=== PATIENT | female | born 1935 | race Hispanic/Latino ===

== ENCOUNTER 2016-11-27 11:10 | Outpatient (CLI) | payer MEDICARE, MEDICAID ==
--- NOTE | 2016-11-27 12:25 | RAD ---
CHEST PA AND LATERAL 2 VIEWS: HISTORY: An 81-year-old female with chronic cough. COMPARISON: 07/09/16, 05/27/15 and 10/15/11. FINDINGS: Again noted is extensive dilatation of the region of the arch of aorta which is stable from prior st udies. Heart size is within normal limits. Anterior cervical fusion changes of the lower cervical spine. No confluent pneumonia, overt edema, or pleural effusion. 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 No pneumonia or other acut e intrathoracic disease. POS: [facility]
== END 2016-11-27 11:11 | disposition home or self-care (01) ==
LOC: MADRAD 11:10
PROVIDERS: ATTEND Family Medicine
DX: R05 Cough (principal); I77.810 Thoracic aortic ectasia
CPT/HCPCS: 71020

== ENCOUNTER 2018-01-03 17:31 | Emergency (ER) | payer MEDICARE, OTHER ==
[2018-01-03] MEDS ORDERED: Promethazine HCl 25 MG/ML VIAL ONE (17:51)
[2018-01-03] MEDS ORDERED: MORPHINE 10 MG/ML SYRINGE ONE (17:51)
[2018-01-03] MEDS ORDERED: Ketorolac Tromethamine 30 MG/ML VIAL ONE (17:52)
--- NOTE | 2018-01-03 19:04 | RAD ---
PA CHEST X-RAY WITH TWO VIEWS LEFT-SIDED RIBS: 01/03/2018 HISTORY: Injury after fall. COMPARISON: 11/27/2016 FINDINGS: Again noted is aneurysmal dilatation of the aortic arch with vascular calcifications again seen. The thoracic aorta also remains tortuous. There is mild volume loss at the left lung base. The lungs a re otherwise clear. No pneumothorax or pleural effusion is present. Postsurgical changes related to anterior cervical fusion of the lower cervical spine are again noted. the lower most ribs are parti ally obscured, but there is otherwise no obvious left-sided rib fracture identified. There are degen erative changes in the spine. No other interval change from prior study. IMPRESSION: 1. No acute cardiopulmonary process. 2. Stable aneurysmal dilatation of the aortic arch and tortuosity of the thoracic aorta. 3. No obvious left-sided rib fracture is appreciated. POS: [facility]
--- NOTE | 2018-01-03 19:07 | RAD ---
LEFT WRIST THREE VIEWS: 01/03/2018 HISTORY: Left wrist injury after a fall. FINDINGS: There is a fracture involving the radial styloid process, which is slightly comminuted, with mild sep aration of fracture fragments. No additional fracture is seen, and there is no dislocation. There i s prominent osteoarthritis involving the first carpometacarpal joint, and the base of the metacarpal is slightly displaced laterally, related to the prominent degenerative changes. There are prominent vascular calcifications at the level of the wrist. Subcutaneous soft tissue swelling is seen about t he wrist. IMPRESSION: 1. Mildly comminuted fracture with minimal separation of fracture fragments involving the radial sty loid process. 2. Subcutaneous soft tissue swelling. 3. Osteoarthritis. POS: [facility]
--- NOTE | 2018-01-03 19:08 | RAD ---
LEFT KNEE FOUR VIEWS: 01/03/2018 HISTORY: Left knee injury after fall. FINDINGS: There is no evidence of a fracture, dislocation, or other osseous abnormality. A small superior abreu llar enthesophyte is noted. Vascular calcification is seen posterior to the knee. IMPRESSION: No acute osseous abnormality. POS: [facility]
--- NOTE | 2018-01-03 19:09 | RAD ---
RIGHT KNEE FOUR VIEWS: 01/03/2018 HISTORY: Right knee injury after fall. FINDINGS: There is suggestion of a mildly comminuted fracture involving the mid portion and inferior pole of th e patella with mild separation without significant displacement of fracture fragments. No additional fracture is seen, and there is no evidence of a dislocation. Prominent vascular calcification poste rior to the knee. IMPRESSION: Nondisplaced fracture of the patella, which is probably minimally comminuted. POS: [facility]
== END 2018-01-03 19:45 | disposition home or self-care (01) ==
LOC: MADERS 17:31
DX: S82.044A Nondisplaced comminuted fracture of right patella, initial encounter for closed fracture (principal); S52.512A Displaced fracture of left radial styloid process, initial encounter for closed fracture; K21.9 Gastro-esophageal reflux disease without esophagitis; I10 Essential (primary) hypertension; F32.9 Major depressive disorder, single episode, unspecified; J42 Unspecified chronic bronchitis; Z79.899 Other long term (current) drug therapy; W18.30XA Fall on same level, unspecified, initial encounter
CPT/HCPCS: 29125; 96374; 96375; J1885; J2270; J2550

== ENCOUNTER 2018-03-19 11:11 | Emergency (ER) | payer MEDICARE, MEDICAID ==
[~2018-03-19 11:11] MED LIST: Iopamidol 370 76% 100 ML VIAL ONE; Sodium Chloride 0.9% 1,000 ML BAG ONE
[2018-03-19] MEDS ORDERED: Pantoprazole 40 MG VIAL ONE (11:32)
[2018-03-19] MEDS ORDERED: Ondansetron HCl/PF 4 MG/2 ML Vial ONE (11:32)
[2018-03-19 11:53] LABS: #Basophils 0.1 thou/uL (0.0-0.2); #Eosinphils 0.1 thou/uL (0.0-0.7); #Lymphocytes 0.9 thou/uL (1.20-3.40); #Monocytes 0.5 thou/uL (0.11-0.59); #Neutrophils 6.5 thou/uL (1.40-6.50); %Basophils 0.8 % (0.0-1.0); %Eosinophils 1.2 % (0.0-10.0); %Lymphocytes 11.3 % (21.0-51.0); %Monocytes 6.1 % (0.0-10.0); %Neutrophils 80.6 % (42.0-75.0); Mean Corpuscular HGB CONC 31.5 g/dL (32.0-36.0); Mean Corpuscular Hemoglobin 29.1 pg (27.0-31.0); Mean Corpuscular Volume 92.6 fL (78.0-98.0); Mean Platelet Volume 6.3 fL (7.4-10.4); Platelet Count 301 thou/uL (130-400); RBC Distribution Width 13.7 % (11.5-14.5); Red Blood Cell (RBC) Count 3.77 mill/uL (4.20-5.40)
[2018-03-19 12:10] LABS: ALT (SGPT) 50 U/L (8-55); AST (SGOT) 102 U/L (5-34); Albumin 3.6 g/dL (3.4-4.8); Alkaline Phosphatase 149 U/L (40-150); Anion Gap 17 mmol/L (10-20); BUN (Urea Nitrogen) 18 mg/dL (9.8-20.1); Bilirubin, Total 0.4 mg/dL (0.2-1.2); Calc. Creatinine Clearance 0 mL/min (70-130); Calcium 8.7 mg/dL (7.8-10.44); Carbon Dioxide 23 mmol/L (23-31); Chloride 106 mmol/L (98-107); Estimated GFR-MDRD 62; Globulin 3.8 g/dL (2.4-3.5); Glucose 138 mg/dL (83-110); Lipase 108 U/L (8-78); Potassium 3.6 mmol/L (3.5-5.1); Protein, Total 7.4 g/dL (6.0-8.3); Sodium 142 mmol/L (136-145)
--- NOTE | 2018-03-19 13:22 | CT ---
CT ABDOMEN AND PELVIS WITH IV CONTRAST: Multiple axial tomograms were obtained through the abdomen and pelvis with IV enhancement. INDICATION: Epigastric pain. Nausea and vomiting. History of malignancy. The type of malignancy is not specifi ed. COMPARISON: Comparison is made to CT abdomen and pelvis of July 2012. FINDINGS: The lung bases show no evidence of infiltrate. Cardiomegaly and mild vascular engorgement is noted. No effusion. The liver, spleen, and pancreas is unremarkable. There is mild prominence of the intra- and extrahep atic bile ducts, probably on the basis of cholecystectomy status post. There is mural thickening and peripheral inflammatory haziness surrounding the region of the pylorus and the 1st and 2nd portions of the duodenum. Recommend further evaluation with endoscopy. Adrenal glands are normal. Kidneys unremarkable. Small bowel loops are normal caliber. Inflammatory change extends into the right upper quadrant and abuts the colon at the hepatic flexure. There is a suggestion of mural thickening of the colon at this location. The colon is poorly evalu ated due to nondistention. There appears to be mild diffuse mural thickening throughout the entire c olon. Aorta is calcified but normal caliber. No adenopathy. IMPRESSION: There is mural thickening and inflammatory change involving the region of the gastric pylorus and 1st and 2nd portions of duodenum. Inflammatory haziness extends into the right upper quadrant around th e colon at the hepatic flexure. There is also a suggestion of mural thickening involving the colon, especially pronounced involving transverse and left colon, although nondistention inhibits evaluation . Duodenitis and/or colitis are considerations. Recommend GI consultation and consider further evalu ation with endoscopy. POS: [facility]
[2018-03-19] MEDS ORDERED: Loperamide HCl 2 MG CAP ONE (13:56)
[2018-03-19] MEDS ORDERED: Promethazine 25 MG TAB ONE (13:56)
== END 2018-03-19 14:17 | disposition home or self-care (01) ==
LOC: MADERS 11:11
DX: K52.9 Noninfective gastroenteritis and colitis, unspecified (principal); K21.9 Gastro-esophageal reflux disease without esophagitis; J42 Unspecified chronic bronchitis; I10 Essential (primary) hypertension; F32.9 Major depressive disorder, single episode, unspecified
CPT/HCPCS: 36415; 74177; 80053; 82150; 83605; 83690; 85025; 96361; 96374; 96375; C9113; J2405; J7050

== ENCOUNTER 2019-07-29 14:33 | Emergency (ER) | payer MEDICARE, MEDICAID ==
--- NOTE | 2019-07-29 16:03 | CT ---
CT Brain WO Con: 07/29/2019 3:29 PM CLINICAL HISTORY: Trauma. COMPARISON: None. FINDINGS: Hemorrhage: None. Ventricular system: Age-appropriate in size. Cerebral parenchyma: Microvascular ischemic disease Midline shift: None. Mass: No mass effect. Calvarium: Normal. Visualized Paranasal sinuses: Clear. IMPRESSION: No acute intracranial abnormalities.
--- NOTE | 2019-07-29 16:14 | CT ---
CT Cervical Spine WO Con Indication: Pain/Injury COMPARISON: None FINDINGS: Acute fracture/subluxation: None Spinal alignment: No acute malalignment. Vertebral body heights: Maintained. Cervical spine degenerative change: Multilevel mild degenerative change. There is ACDF of the C5-6 level. Incidental note of aneurysmal dilatation at the junction of the aortic arch and descending thoracic a amna, approximately 4 cm in diameter with associated calcification. IMPRESSION: No acute osseous abnormality. Incidental note of aneurysmal dilatation of the thoracic aorta. This is incompletely assessed. Correl ate clinically.
== END 2019-07-29 16:39 | disposition home or self-care (01) ==
LOC: MADERS 14:33
DX: S09.90XA Unspecified injury of head, initial encounter (principal); M54.2 Cervicalgia; I71.2 Thoracic aortic aneurysm, without rupture; K21.9 Gastro-esophageal reflux disease without esophagitis; I10 Essential (primary) hypertension; F32.9 Major depressive disorder, single episode, unspecified; Z79.899 Other long term (current) drug therapy; W18.30XA Fall on same level, unspecified, initial encounter
CPT/HCPCS: 70450; 72125; L0120

== ENCOUNTER 2019-08-01 17:11 | Outpatient (CLI) | payer MEDICARE, MEDICAID ==
[2019-08-01 17:47] LABS: #Basophils 0.2 thou/uL (0.0-0.2); #Lymphocytes 0.9 thou/uL (1.20-3.40); #Monocytes 0.8 thou/uL (0.11-0.59); #Neutrophils 11.6 thou/uL (1.40-6.50); %Basophils 1.3 % (0.0-1.0); %Eosinophils 0.1 % (0.0-10.0); %Lymphocytes 6.3 % (21.0-51.0); %Monocytes 5.8 % (0.0-10.0); %Neutrophils 86.5 % (42.0-75.0); Hemoglobin 12.5 g/dL (12.0-16.0); Mean Corpuscular HGB CONC 30.8 g/dL (32.0-36.0); Mean Corpuscular Hemoglobin 30.5 pg (27.0-31.0); Mean Platelet Volume 7.8 fL (7.4-10.4); Platelet Count 329 thou/uL (130-400); RBC Distribution Width 12.8 % (11.5-14.5); White Blood Cell (WBC) Count 13.4 thou/uL (4.8-10.8)
[2019-08-01 17:49] LABS: Lactic Acid 1.7 mmol/L (0.5-2.2)
--- NOTE | 2019-08-01 17:52 | RAD ---
EXAM: Chest 2 views: HISTORY: Acute febrile illness, back pain COMPARISON: 11/27/2016 FINDINGS: Focal aneurysm/aneurysmal dilatation of the arch of the aorta, stable. Heart size:Borderline size heart Lungs:Clear of acute process. Atherosclerotic changes of the aorta. Scoliotic changes of the thoracic lumbar spine. No confluent pneumonia, overt edema, pleural effusion, pneumothorax, or other significant acute proce ss. IMPRESSION: Stable focal aneurysm/aneurysmal dilatation of the arch of the aorta. Atherosclerosis of the aorta. No acute intrathoracic disease.
[2019-08-01 17:56] LABS: ALT (SGPT) 260 U/L (8-55); AST (SGOT) 170 U/L (5-34); Albumin 3.7 g/dL (3.4-4.8); Alkaline Phosphatase 485 U/L (40-110); Anion Gap 18 mmol/L (10-20); BUN (Urea Nitrogen) 29 mg/dL (9.8-20.1); Bilirubin, Total 2.6 mg/dL (0.2-1.2); Calc. Creatinine Clearance 0 mL/min (70-130); Carbon Dioxide 24 mmol/L (23-31); Chloride 103 mmol/L (98-107); Estimated GFR-MDRD 61; Globulin 3.8 g/dL (2.4-3.5); Glucose 125 mg/dL (83-110); Potassium 3.8 mmol/L (3.5-5.1); Protein, Total 7.5 g/dL (6.0-8.3); Sodium 141 mmol/L (136-145)
== END 2019-08-01 17:12 | disposition home or self-care (01) ==
LOC: MADLAB 17:11 → MADRAD 17:12
PROVIDERS: ATTEND Family Medicine
DX: M54.9 Dorsalgia, unspecified (principal); R50.9 Fever, unspecified; R10.2 Pelvic and perineal pain; R31.29 Other microscopic hematuria; I71.2 Thoracic aortic aneurysm, without rupture; I70.0 Atherosclerosis of aorta
CPT/HCPCS: 36415; 71046; 80053; 83605; 85025; 87040; 87086

== ENCOUNTER 2019-08-08 09:25 | Emergency (ER) | payer MEDICARE, MEDICAID | END 2019-08-08 09:53 | disposition home or self-care (01) | LOC: MADERS 09:25 | DX: R11.2 Nausea with vomiting, unspecified (principal); R19.7 Diarrhea, unspecified; K21.9 Gastro-esophageal reflux disease without esophagitis; I10 Essential (primary) hypertension; F32.9 Major depressive disorder, single episode, unspecified | CPT/HCPCS: 99283 ==